=== PATIENT | female | born 1975 | race Caucasian/White ===

== ENCOUNTER 2018-03-27 05:55 | Day surgery (SDC) | payer OTHER ==
[~2018-03-27] VITALS: Ht 160 cm; Wt 65.8 kg
[2018-03-27] MEDS ORDERED: LR 1,000 ML IV SCH (08:34)
[2018-03-27] MEDS ORDERED: MORPHINE SULFATE 10 MG/ML VIAL IVP PRN (08:45)
[2018-03-27] MEDS ORDERED: MORPHINE 4 MG/ML INJ. SYRINGE IVP PRN ×2 (08:45)
[2018-03-27] MEDS ORDERED: MEPERIDINE HCL/PF 25 MG/ML DISP.SYRIN IVP PRN (08:45)
[2018-03-27] MEDS ORDERED: KETOROLAC TROMETHAMINE 30 MG VIAL IVP ONE ×2 (10:00→10:15)
[2018-03-27] MEDS ORDERED: ONDANSETRON HCL 4 MG/2 ML VIAL IVP PRN (10:00)
[2018-03-27] MEDS ORDERED: PROMETHAZINE HCL 25 MG/ML AMP IM PRN (10:00)
[2018-03-27] MEDS ORDERED: SEVOFLURANE 15 MIN GAS INH ONE (10:15)
[2018-03-27] MEDS ORDERED: ROPIVACAINE 40 MG/20 ML AMP EP ONE (10:15)
[2018-03-27] MEDS ORDERED: ROCURONIUM BROMIDE 10 MG/ML (ZEMURON) IV ONE (10:15)
[2018-03-27] MEDS ORDERED: PROPOFOL 200MG/ 20ML VIAL (DIPRIVAN) IV ONE (10:15)
[2018-03-27] MEDS ORDERED: LIDOCAINE 2%, 20 ML MDV INJ ONE (10:15)
[2018-03-27] MEDS ORDERED: BUPIVACAINE /EPINEPHRINE/PF 0.5% 30 ML VIAL INJ ONE (10:15)
[2018-03-27] MEDS ORDERED: SODIUM BICARBONATE 4% (NEUT) 5 ML VIAL INJ ONE (10:15)
[2018-03-27] MEDS ORDERED: DEXAMETHASONE SOD PHOSPHATE 4 MG/ML VIAL IVP ONE (10:15)
[2018-03-27] MEDS ORDERED: fentaNYL CITRATE 250 MCG/5 ML AMP IV ONE (10:15)
[2018-03-27] MEDS ORDERED: LR 1,000 ML IV.SOLN IV ONE (10:15)
[2018-03-27] MEDS ORDERED: CEFAZOLIN 2 GM IVPB PREMIX 50 ML IV ONE (10:15)
[2018-03-27] MEDS ORDERED: MIDAZOLAM HCL 5 MG/ML VIAL (VERSED) IV ONE (10:15)
[2018-03-27] MEDS: HYDROmorphone 2 MG/ML VIAL IVP PRN ×2 (10:38→10:48)
[2018-03-27] MEDS ORDERED: HYDROmorphone 2 MG/ML VIAL IVP ONE (11:15)
[2018-03-27 11:48] VITALS: BP_SYST 93
[2018-03-27] MEDS ORDERED: OXYCODONE/ACETAMINOPHEN 5-325 TABLET PO PRN (12:00)
[2018-03-27] MEDS ORDERED: KETOROLAC TROMETHAMINE 30 MG VIAL ONE (13:40)
== END 2018-03-27 14:35 | disposition home or self-care (01) ==
LOC: SDS 05:55
PROVIDERS: ATTEND Obstetrics & Gynecology
DX: N80.0 Endometriosis of uterus (principal); N83.8 Other noninflammatory disorders of ovary, fallopian tube and broad ligament; Z98.890 Other specified postprocedural states; Z83.3 Family history of diabetes mellitus; Z80.0 Family history of malignant neoplasm of digestive organs; Z88.8 Allergy status to other drugs, medicaments and biological substances
CPT/HCPCS: 36415; 58571; 86886; 86900; 86901; 88307; J0690; J1100; J1170; J1885; J2001; J2250; J2704; J2795; J3010; J3490; J7120; E0190